=== PATIENT | female | born 1945 | race Two or more races ===

== ENCOUNTER 2019-07-23 15:34 | Emergency (ER) | payer OTHER ==
[~2019-07-23] VITALS: Ht 162.6 cm; Wt 97.1 kg
[2019-07-23] MEDS ORDERED: IV NORMAL SALINE 1000 ML BAG IV ONE ×2 (15:45→16:45)
--- NOTE | 2019-07-23 16:00 | NUR ---
PT UNABLE TO REMEMBER COMPLETE MEDS AND DOSAGES AT THIS TIME.
[2019-07-23 16:05] LABS: BASOPHILS % (AUTO) 0.4 % (0.0-2.0); EOSINOPHILS # (AUTO) 0.1 K/uL (0.0-0.7); EOSINOPHILS % (AUTO) 1.4 % (0.0-7.0); HEMATOCRIT 34.7 % (31.2-41.9); HEMOGLOBIN 11.2 g/dL (10.9-14.3); MEAN CORPUSCULAR HEMOGLOBIN 28.3 uug (24.7-32.8); MEAN CORPUSCULAR HGB CONC 32 g/dL (32.3-35.6); MEAN CORPUSCULAR VOLUME 87.5 fL (75.5-95.3); MONOCYTES # (AUTO) 0.5 K/uL (2.0-10.0); MONOCYTES % (AUTO) 6.9 % (0.0-11.0); NEUTROPHILS # (AUTO) 5.3 K/uL (1.8-8.9); NEUTROPHILS % (AUTO) 66.3 % (38.5-71.5); PLATELET COUNT (AUTO) 301 K/uL (179-408); RED BLOOD CELL COUNT(AUTO) 3.97 MIL/uL (3.63-4.92)
[2019-07-23 16:24] LABS: BILIRUBIN,TOTAL 0.3 mg/dL (0.2-1.0); CREATININE 1.3 mg/dL (0.6-1.3); POTASSIUM 4.5 mmol/L (3.5-5.1); TOTAL PROTEIN, SERUM 7.5 g/dL (6.4-8.2)
[2019-07-23 16:30] LABS: BILIRUBIN,DIRECT 0.1 mg/dL (0.0-0.2)
[2019-07-23] MEDS ORDERED: INSULIN REGULAR, HUMAN 300 UNIT/3 ML VIAL SQ ONE ×2 (16:45→17:45)
[2019-07-23] MEDS ORDERED: INSULIN REGULAR, HUMAN 300 UNIT/3 ML VIAL ONE (17:02)
--- NOTE | 2019-07-23 17:28 | NUR ---
Spoke to Terrie from [facility], Vitals provided. awaiting for MD to MD call. Patient is resting comfortably in bed with eyes closed, NAD noted.
--- NOTE | 2019-07-23 19:08 | NUR ---
Reprt given to [facility] ambulance project assistant. Pt left ER via gurney in stable condition. All belongings sent w/ pt.
== END 2019-07-23 19:12 | disposition short-term general hospital (02) ==
LOC: ER 15:36
DX: E11.65 Type 2 diabetes mellitus with hyperglycemia (principal); Z60.2 Problems related to living alone; Z79.899 Other long term (current) drug therapy
CPT/HCPCS: 36415; 71045; 80048; 80076; 85025; 93005; 96360; 96361; 96372 ×2; 99285; J1815; A4663; J7030